=== PATIENT | female | born 1985 | race Caucasian/White ===

== ENCOUNTER 2020-02-13 13:54 | Emergency (ER) | payer SELFPAY ==
[~2020-02-13] VITALS: Ht 167 cm; Wt 65.0 kg
[2020-02-13] MEDS ORDERED: NF-OLOP5ML OU (14:15)
--- NOTE | 2020-02-13 14:15 | ED EENT ---
History of Present Illness General Chief Complaint: Eye Problems Stated Complaint: DOUBLE EYE INFECTION Nursing Triage Note: THE PT IS AMBULATORY TO THE ROOM WITHOUT DIFFICULTY, NO DISTRESS IS SEEN ON ARRIVAL. LOC IS [facility] FOR THE PT. THE PT C/O PAINFULD AND RED EYE'S FOR 6 DAY'S. History of Present Illness Date Seen by Provider: Feb 13, 2020 Time Seen by Provider: 14:05 Initial Comments 34-year-old female with history of allergic rhinitis presents for bilateral eye pruritus. She was put on an antibiotic eyedrop 6 days ago and has been using it,as prescribed. She is also taking Benadryl 50 mg up to every 8 hours but her symptoms have not improved. She denies vision changes but does have trace purulent drainage in the morning. Timing/Duration: last week Severity: mild Location: eye (R), eye (L) Prearrival Treatment: prescription meds Associated Symptoms: denies symptoms Allergies and Home Medications Home Medications Olopatadine 5 Ml Drops, 2 DROPS OU DAILY Prescribed by: EDMAR GANDHI on 02/13/20 1415 Patient Home Medication List Home Medication List Reviewed: Yes Review of Systems Review of Systems Constitutional: no symptoms reported, see HPI Eyes: See HPI, Drainage (minimal in the morning); Denies Foreign Body Sensation; Inflammation; Denies Photophobia, Denies Tunnel Vision, Denies Vision Changes Nose: no symptoms reported, see HPI; denies congestion Mouth: no symptoms reported, see HPI Throat: no symptoms reported, see HPI Respiratory: no symptoms reported, see HPI; No cough All Other Systems Reviewed Negative Unless Noted: Yes Past Nedqvxp-Gsbqft-Fxkdiw Hx Past Med/Social Hx: Reviewed Nursing Past Med/Soc Hx Patient Social History Recent Foreign Travel: No Contact w/Someone Who Travel: No Recent Infectious Disease Expo: No Physical Abuse: No Sexual Abuse: No Fear: No Physical Exam Vital Signs Vital Signs - First Documented 02/13/20 02/13/20 14:02 14:18 Temp 36.7 Pulse 83 Resp 16 B/P (MAP) 127/80 (96) Pulse Ox 100 Height, Weight, BMI Height: '" Weight: lbs. oz. kg; 23.00 BMI Method: General Appearance: WD/WN, no apparent distress Eyes: bilateral eye PERRL, bilateral eye EOMI, bilateral eye conjunctival inflammation Ears: bilateral ear auricle normal, bilateral ear canal normal, bilateral ear TM normal Nose: normal inspection; No discharge Mouth/Throat: normal mouth inspection, pharynx normal Cardiovascular: normal peripheral pulses, regular rate, rhythm Respiratory: chest non-tender, lungs clear, normal breath sounds Neurologic/Psychiatric: no motor/sensory deficits, alert, normal mood/affect, oriented x 3 Skin: normal color, warm/dry Progress/Results/Core Measures Results/Orders Vital Signs/I&O 02/13/20 02/13/20 14:02 14:18 Temp 36.7 36.7 Pulse 83 83 Resp 16 16 B/P (MAP) 127/80 (96) 127/80 Pulse Ox 100 Blood Pressure Mean: 96 Departure Impression Primary Impression: Allergic conjunctivitis Qualified Codes: H10.13 - Acute atopic conjunctivitis, bilateral Disposition: 01 HOME, SELF-CARE Condition: Improved Departure-Patient Inst. Decision time for Depature: 14:10 [address]: [facility] (PCP) Primary Care Physician Patient Instructions: Conjunctivitis (Noninfectious Pinkeye) (DC) Add. Discharge Instructions: Discontinue your antibiotic eyedrop. Begin taking Claritin or Zyrtec, one tablet daily. Continue to take Benadryl 50 mg at bedtime. Cool washcloth steer her eyes as needed. Use the prescription eyedrop or ybhm-otn-qkhvpyy allergy eyedrops as needed. Follow-up at [facility] if your symptoms are not improving or worsen. Return to the emergency department for new, urgent health care needs. All discharge instructions reviewed with patient and/or family. Voiced understanding. Scripts Olopatadine (Patanol) 5 Ml Drops 2 DROPS OU DAILY, #1 EA 0 Refills Prov: EDMAR GANDHI 02/13/20 EDMAR GANDHI Feb 13, 2020 14:15
[2020-02-13 14:18] VITALS: BP 127/80
--- OUTSIDE RECORDS SUMMARY | 2020-02-13 16:00 | XMS REPORT ---
Author Author Sandie CORRIGAN Organization [facility] Address [address] [place] [address] Care Team Providers Care Splunk Dashboard Developer Name Role Phone JAMEE CORRIGAN Unavailable PROBLEMS Type Condition ICD9-CM Code [id number] Code Onset Dates Condition S tatus SNOMED Code Problem IV drug abuse F19.10 Active Problem Psychosis, unspecified psychosis type F29 Active 16187518 Problem Moderate episode of recurrent major depressive disorder F33.1 Active 647206487 Problem Amenorrhea N91.2 Active [id number] ALLERGIES No Known Allergies ENCOUNTERS Encounter Location Date Diagnosis [facility] [address] [place] [address] Nov, [facility] [address] [address] Oct, Non-intractable vomiting wit h nausea, unspecified vomiting type R11.2 ; Medication side effects T88.7XXA and Dizziness R42 [facility] [id number] [place] [phone] Sep, Moderate episode of recurren t major depressive disorder F33.1 and Psychosis, unspecified psychosis type F29 [facility] [id number] [place] [phone] Aug, Moderate episode of recurren t major depressive disorder F33.1 [facility] [id number] [place] [phone] 05 Jul, 2018 Cellulitis of right upper ex tremity L03.113 [facility] [id number] [place] [phone] Jun, Moderate episode of recurren t major depressive disorder F33.1 ; Psychosis, unspecified psychosis type F29 and IV drug abuse F19.10 [facility] [address] [facility] [id number] [place] [address] May, Moderate episode of recurren t major depressive disorder F33.1 and Amenorrhea N91.2 IMMUNIZATIONS No Known Immunizations SOCIAL HISTORY Never Assessed REASON FOR VISIT dizzy/vomiting-twooden,RMA, pt states has been vomiting for three days and havin g some dizziness and have been having the shakes, need DrCari note for work PLAN OF CARE Activity Details Follow Up prn. if not improving with P CP or reg follow up Reason: VITAL SIGNS Weight 161.4 lbs 2018-10-28 Temperature 97.7 degrees Fahrenheit 2018-10-28 Heart Rate 81 bpm 2018-10-28 Respiratory Rate 20 2018-10-28 Oximetry on room air:98 % 2018-10-28 Blood pressure systolic 102 mmHg 2018-10-28 Blood pressure diastolic 78 mmHg 2018-10-28 MEDICATIONS Medication Instructions Dosage Frequency Start Date End Date Duration S tatus Celexa 10 MG Orally Once a day 1 tablet 24h Sep, 30 day(s) Active Zofran 4 MG Orally TID PRN 1 tablets Oct, 5 days Active Abilify 20 MG Orally Once a day 1 tablet 24h Jun, 30 days Active RESULTS No Results PROCEDURES No Known procedures INSTRUCTIONS MEDICATIONS ADMINISTERED No Known Medications MEDICAL (GENERAL) HISTORY Type Description Date Surgical History 2 x C- section 2006 Surgical History tubal ligation Surgical History gallbladder Surgical History Tonsillectomy and adenoidectomy age 13 Hospitalization History surgeries 2009
--- OUTSIDE RECORDS SUMMARY | 2020-02-13 16:00 | XMS REPORT ---
Author Author Sandie DURBIN [facility] Address [address] [place] [address] Care Team Providers Care Flexo Operator Name Role Phone FRANKI DURBIN Unavailable PROBLEMS Type Condition ICD9-CM Code [id number] Code Onset Dates Condition S tatus SNOMED Code Problem IV drug abuse F19.10 Active Problem Psychosis, unspecified psychosis type F29 Active 19275530 Problem Moderate episode of recurrent major depressive disorder F33.1 Active 876084289 Problem Amenorrhea N91.2 Active 62758092 ALLERGIES No Known Allergies ENCOUNTERS Encounter Location Date Diagnosis [facility] [id number] [place] [phone] Aug, [facility] [id number] [place] [phone] Aug, [facility] [id number] [place] [phone] Jul, Cellulitis of right upper ex tremity L03.113 [facility] [id number] [place] [phone] Jun, Moderate episode of recurren t major depressive disorder F33.1 ; Psychosis, unspecified psychosis type F29 and IV drug abuse F19.10 [facility] [id number] [place] [address] May, Moderate episode of recurren t major depressive disorder F33.1 and Amenorrhea N91.2 IMMUNIZATIONS Vaccine Route Administration Date Status ROCEPHIN 1 GM (IM) IM Intramuscular Jul 26, 2018 Administered SOCIAL HISTORY Never Assessed REASON FOR VISIT insect bite-bit on right arm/elbow while at work yesterday. Last night was a sm all red spot and today whole elbow is red, swollen and warm. The patient is douglas ble to straighten her arm without it burning. Area of redness is 7 cm x 6 cm.-- VANESSA Valladares PLAN OF CARE Activity Details Follow Up 2 - 3 Days Reason: VITAL SIGNS Weight 161 lbs 2018-07-26 Temperature 99.0 degrees Fahrenheit 2018-07-26 Heart Rate 96 bpm 2018-07-26 Respiratory Rate 18 2018-07-26 Blood pressure systolic 124 mmHg 2018-07-26 Blood pressure diastolic 68 mmHg 2018-07-26 MEDICATIONS Medication Instructions Dosage Frequency Start Date End Date Duration S tatus Ibuprofen 600 MG Orally every 6 hrs 1 tablet with food or milk as n eeded 6h Jul, Jul, 5 days Active Tylenol Extra Strength 500 MG Orally every 6 hrs 1 tablet as needed 6h Jul, Jul, 5 days Active Abilify 5 MG Orally Once a day 1 tablet 24h Jun, 30 day(s) Active Doxycycline Hyclate 100 MG Orally every 12 hrs 1 capsule 12h 10 day(s) Active RESULTS No Results PROCEDURES Procedure Date Ordered Result Body Site ROCEPHIN 1 GM (IM) Jul 26, 2018 THER/PROPH/DIAG INJ, SC/IM Jul 26, 2018 INSTRUCTIONS MEDICATIONS ADMINISTERED No Known Medications MEDICAL (GENERAL) HISTORY Type Description Date Surgical History 2 x C- section 2006 Surgical History tubal ligation Surgical History gallbladder Surgical History Tonsillectomy and adenoidectomy age 13 Hospitalization History surgeries 2009
--- OUTSIDE RECORDS SUMMARY | 2020-02-13 16:00 | XMS REPORT ---
Author Author Sandie MANLEY ALMAZ Organization [facility] Address [address] [place] [address] Care Team Providers Care Ear Nose And Throat Specialist Name Role Phone SINDHUJACEKA Unavailable PROBLEMS Type Condition ICD9-CM Code [id number] Code Onset Dates Condition S tatus SNOMED Code Problem IV drug abuse F19.10 Active Problem Psychosis, unspecified psychosis type F29 Active 74523857 Problem Moderate episode of recurrent major depressive disorder F33.1 Active 637212196 Problem Amenorrhea N91.2 Active 37720314 ALLERGIES No Information ENCOUNTERS Encounter Location Date Diagnosis [facility] [address] [place] [address] Nov, [facility] [id number] [place] [phone] Sep, Moderate episode of recurren t major depressive disorder F33.1 and Psychosis, unspecified psychosis type F29 [facility] [address] [facility] [id number] [address] [place] [phone] Aug, Moderate episode of recurren t major depressive disorder F33.1 [facility] [address] [facility] [id number] [address] [place] [phone] Jul, Cellulitis of right upper ex tremity L03.113 [facility] [address] [facility] [id number] [address] [place] [phone] Jun, Moderate episode of recurren t major depressive disorder F33.1 ; Psychosis, unspecified psychosis type F29 and IV drug abuse F19.10 [facility] [address] [facility] [id number] [address] [place] [phone] May, Moderate episode of recurren t major depressive disorder F33.1 and Amenorrhea N91.2 IMMUNIZATIONS No Known Immunizations SOCIAL HISTORY Never Assessed REASON FOR VISIT f/u- nithya PLAN OF CARE Activity Details Follow Up 4 Weeks Reason: VITAL SIGNS Weight 163.4 lbs 2018-10-19 Heart Rate 107 bpm 2018-10-19 Respiratory Rate 20 2018-10-19 Blood pressure systolic 114 mmHg 2018-10-19 Blood pressure diastolic 86 mmHg 2018-10-19 MEDICATIONS Medication Instructions Dosage Frequency Start Date End Date Duration S tatus Bactrim 400-80 MG Orally Once a day 1 tablet 24h 10 day(s) Active Levaquin 500 MG Orally Once a day 1 tablet 24h 10 da y(s) Active Abilify 20 MG Orally Once a day 1 tablet 24h Jun, 30 days Active Celexa 10 MG Orally Once a day 1 tablet 24h Sep, 30 day(s) Active RESULTS No Results PROCEDURES No Known procedures INSTRUCTIONS MEDICATIONS ADMINISTERED No Known Medications MEDICAL (GENERAL) HISTORY Type Description Date Surgical History 2 x C- section 2006 Surgical History tubal ligation Surgical History gallbladder Surgical History Tonsillectomy and adenoidectomy age 13 Hospitalization History surgeries 2009
--- OUTSIDE RECORDS SUMMARY | 2020-02-13 16:01 | XMS REPORT ---
Author Author Sandie MANLEY ALMAZ Organization [facility] [place] Address [address] [place] [address] Care Team Providers Care Fiberglass Fabricator Name Role Phone SINDHU ALMAZ Unavailable PROBLEMS Type Condition ICD9-CM Code IKN38-OV Code Onset Dates Condition S tatus SNOMED Code Problem IV drug abuse F19.10 Active Problem Psychosis, unspecified psychosis type F29 Active 17278284 Problem Moderate episode of recurrent major depressive disorder F33.1 Active 322708286 Problem Amenorrhea N91.2 Active 20632947 ALLERGIES No Known Allergies ENCOUNTERS Encounter Location Date Diagnosis [facility] [place] [id number] [place] [phone] Aug, [facility] [place] [id number] [place] [phone] Aug, [facility] [id number] [place] [phone] 05 Jul, 2018 Cellulitis of right upper ex tremity L03.113 [facility] [place] [id number] [place] [phone] Jun, Moderate episode of recurren t major depressive disorder F33.1 ; Psychosis, unspecified psychosis type F29 and IV drug abuse F19.10 [facility] [place] [address] [facility] [id number] [address] [place] [phone] May, Moderate episode of recurren t major depressive disorder F33.1 and Amenorrhea N91.2 IMMUNIZATIONS No Known Immunizations SOCIAL HISTORY Never Assessed REASON FOR VISIT BH intake VANESSA Cruz PLAN OF CARE Activity Details Follow Up 3 Weeks Reason: VITAL SIGNS Weight 154.8 lbs 2018-07-18 Heart Rate 94 bpm 2018-07-18 Respiratory Rate 18 2018-07-18 Blood pressure systolic 102 mmHg 2018-07-18 Blood pressure diastolic 64 mmHg 2018-07-18 MEDICATIONS Medication Instructions Dosage Frequency Start Date End Date Duration S dwaine Abilify 5 MG Orally Once a day 1 tablet 24h Jun, 30 day(s) Active RESULTS No Results PROCEDURES No Known procedures INSTRUCTIONS MEDICATIONS ADMINISTERED No Known Medications MEDICAL (GENERAL) HISTORY Type Description Date Surgical History 2 x C- section 2006 Surgical History tubal ligation Surgical History gallbladder Surgical History Tonsillectomy and adenoidectomy age 13 Hospitalization History surgeries 2009
== END 2020-02-13 14:19 | disposition home or self-care (01) ==
LOC: ER 13:56
DX: H10.13 Acute atopic conjunctivitis, bilateral (principal); J30.9 Allergic rhinitis, unspecified
CPT/HCPCS: 99282